=== PATIENT | female | born 1940 | race Caucasian/White ===

== ENCOUNTER 2017-02-25 21:19 | Emergency (ER) | payer MEDICARE, OTHER ==
[~2017-02-25] VITALS: Ht 157.5 cm; Wt 46.1 kg
[~2017-02-25 21:19] MED LIST: ASPI325T; HYDR-3533 PO
[2017-02-25 21:40] VITALS: BP 216/100; PULSE 108; RESP 18; TEMP 98.7; O2SAT 98
== END 2017-02-25 23:26 | disposition left against medical advice (07) ==
LOC: PHED 21:19
DX: R10.9 Unspecified abdominal pain (principal); I10 Essential (primary) hypertension; Z53.21 Procedure and treatment not carried out due to patient leaving prior to being seen by health care provider
CPT/HCPCS: 99281